=== PATIENT | male | born 1980 | race Hispanic/Latino ===

== ENCOUNTER 2022-05-16 10:18 | Outpatient (CLI) | payer BC ==
[2022-05-16] MEDS ORDERED: Iopamidol 300 61% 100 ML VIAL FS ONE (14:39)
== END 2022-05-16 10:19 | disposition home or self-care (01) ==
LOC: CSHCT 10:18
PROVIDERS: ATTEND Family Medicine
DX: R10.84 Generalized abdominal pain (principal); N20.0 Calculus of kidney; N28.9 Disorder of kidney and ureter, unspecified
CPT/HCPCS: 74177; Q9967